=== PATIENT | male | born 1980 | race African-American/Black ===

== ENCOUNTER 2016-10-07 11:23 | Emergency (ER) | payer OTHER ==
[~2016-10-07] VITALS: Ht 188 cm; Wt 106.6 kg
[2016-10-07 11:24] VITALS: BP 141/91
[2016-10-07] MEDS ORDERED: THERPAK PO (11:36)
[2016-10-07] MEDS ORDERED: NAPR250T2 PO (11:36)
[2016-10-07] MEDS ORDERED: OFLO0.3D57 (11:36)
[2016-10-07] MEDS ORDERED: TOBR3OPD OU (11:36)
[2016-10-07] MEDS ORDERED: AMOXICILLIN 500 MG CAP PO ONE (12:00)
[2016-10-07] MEDS ORDERED: ERYTHROMYCIN OPHTH OINT OU ONE (12:00)
[2016-10-07] MEDS ORDERED: ERYTOIN8 OU (12:02)
[2016-10-07] MEDS ORDERED: AMOX500C PO (12:02)
== END 2016-10-07 12:16 | disposition home or self-care (01) ==
LOC: M ED 11:50
DX: J02.9 Acute pharyngitis, unspecified (principal); H66.91 Otitis media, unspecified, right ear; H10.30 Unspecified acute conjunctivitis, unspecified eye

== ENCOUNTER 2022-01-10 20:29 | Inpatient (IN) | payer OTHER ==
[~2022-01-10] VITALS: Ht 188 cm; Wt 128.3 kg
[~2022-01-10 20:29] MED LIST: AK-T0.3S OU; AMOX500C PO; ERYTOIN8 OU; NAPR-849 PO; OFLO0.3D57; THERPAK PO
[2022-01-10] MEDS ORDERED: MORPHINE 2 MG/ML 1ML VIAL IV ONE (21:10)
[2022-01-10] MEDS ORDERED: ONDANSETRON 4MG 2ML VIAL IV ONE (21:10)
[2022-01-10 21:20] LABS: HEMATOCRIT 43.6 % (42.0-52.0); HEMOGLOBIN 15.3 g/dl (13.5-17.5); MEAN CORPUSCULAR HEMOGLOBIN 30.5 pg (27.0-33.0); MEAN CORPUSCULAR HGB CONC 35.1 g/dl (32.0-36.5); MEAN CORPUSCULAR VOLUME 86.9 fl (80.0-96.0); PLATELET COUNT, AUTOMATED 249 10^3/uL (150-450); RED BLOOD COUNT 5.02 10^6/uL (4.30-6.10)
[2022-01-10] MEDS ORDERED: ASPIRIN 81 MG CHEW TABLET PO ONE (21:20)
[2022-01-10 21:21] LABS: WHITE BLOOD COUNT 8.8 10^3/uL (4.0-10.0)
[2022-01-10] MEDS ORDERED: ISOVUE-370 76% 100ML VIAL As Ordered ONE (21:24)
[2022-01-10 21:29] LABS: INR 1.01; PROTHROMBIN TIME 13.7 SECONDS (12.7-14.5)
[2022-01-10 21:30] LABS: PARTIAL THROMBOPLASTIN TIME 30.9 SECONDS (25.9-37.0)
[2022-01-10 21:32] LABS: D-DIMER QUANT 383.13 ng/ml (<500)
[2022-01-10 21:38] LABS: ATYPICAL LYMPH 5 % (0-5); LYMPHOCYTES 42 % (16-44); MONOCYTES 6 % (0-5); NEUTROPHILS 47 % (28-66)
[2022-01-10 21:40] LABS: PLATELET ESTIMATE NORMAL (NORMAL)
[2022-01-10 21:45] LABS: CK-MB VALUE MASS 21.3 NG/ML (<3.6); MB/CK RELATIVE INDEX 3.14 (< OR =4)
[2022-01-10] MEDS ORDERED: NS 1,000 ML IV ONE (21:50)
[2022-01-10 21:59] LABS: ALBUMIN 3.8 GM/DL (3.2-5.2); BILIRUBIN,DIRECT 0.1 MG/DL (0.0-0.2); BILIRUBIN,TOTAL 0.5 MG/DL (0.2-1.0); C REACTIVE PROTEIN QUANTITATIV 1.47 MG/DL (0.00-0.30); FREE T4 1.12 NG/DL (0.76-1.46); THYROID STIMULATING HORMONE 1.03 uIU/ML (0.358-3.740); TOTAL PROTEIN 8.1 GM/DL (6.4-8.2)
[2022-01-10 22:08] LABS: RSV AMPLIFICATION NEGATIVE (NEGATIVE)
[2022-01-10 22:14] LABS: ERYTHROCYTE SEDIMENTATION RATE 49 mm/hr (0-15)
[2022-01-10 23:06] LABS: AMPHETAMINES LEVEL URINE NEGATIVE (NEGATIVE); BARBITURATES URINE NEGATIVE (NEGATIVE); BENZODIAZEPINES URINE NEGATIVE (NEGATIVE); CANNABINOIDS URINE POSITIVE (NEGATIVE); COCAINE METABOLITE URINE NEGATIVE (NEGATIVE); METHADONE URINE NEGATIVE (NEGATIVE); OPIATES URINE POSITIVE (NEGATIVE); PHENCYCLIDINE URINE NEGATIVE (NEGATIVE)
[2022-01-10 23:25] LABS: CK-MB VALUE MASS 19.2 NG/ML (<3.6); MB/CK RELATIVE INDEX 3.14 (< OR =4)
[2022-01-11] MEDS ORDERED: HOME MED LIST COMPLETE! XX SCH (01:35)
[2022-01-11] MEDS ORDERED: HYDROMORPHONE HCL 0.5 MG/ 0.5 ML SYRINGE (J1170 PER 1) IV PRN (02:40)
[2022-01-11] MEDS ORDERED: ACETAMINOPHEN TAB 650MG DOSE (2X325MG) PO PRN (02:40)
[2022-01-11] MEDS: ASPIRIN 81 MG CHEW TABLET PO SCH (09:09)
[2022-01-11] MEDS: ENOXAPARIN 40MG/0.4ML SYRINGE (J1650 PER 10MG) SC SCH (09:10)
[2022-01-11 12:00] VITALS: BP 116/74
[2022-01-11 14:00] VITALS: BP 149/94
[2022-01-11 19:40] VITALS: BP 128/86
[2022-01-11] MEDS ORDERED: IBUPROFEN 600MG TAB PO PRN (19:55)
[2022-01-12 06:22] VITALS: BP 118/62
[2022-01-12] MEDS: ENOXAPARIN 40MG/0.4ML SYRINGE (J1650 PER 10MG) SC SCH (08:12)
[2022-01-12] MEDS: ASPIRIN 81 MG CHEW TABLET PO SCH (08:12)
[2022-01-12 08:13] LABS: HEMATOCRIT 41.3 % (42.0-52.0); HEMOGLOBIN 14.5 g/dl (13.5-17.5); MEAN CORPUSCULAR HEMOGLOBIN 31.3 pg (27.0-33.0); MEAN CORPUSCULAR HGB CONC 35.1 g/dl (32.0-36.5); PLATELET COUNT, AUTOMATED 211 10^3/uL (150-450); RED BLOOD COUNT 4.64 10^6/uL (4.30-6.10)
[2022-01-12 08:22] LABS: INR 1.03; PROTHROMBIN TIME 13.9 SECONDS (12.7-14.5)
[2022-01-12 08:26] LABS: D-DIMER QUANT 387.41 ng/ml (<500)
[2022-01-12] MEDS ORDERED: IBUP-1022 PO (08:58)
[2022-01-12] MEDS ORDERED: ASPI81CH8 PO (08:58)
[2022-01-12 09:05] LABS: ATYPICAL LYMPH 1 % (0-5); EOSINOPHILS 2 % (0-3); LYMPHOCYTES 34 % (16-44); MONOCYTES 7 % (0-5); NEUTROPHILS 54 % (28-66)
[2022-01-12 09:08] LABS: PLATELET ESTIMATE NORMAL (NORMAL)
[2022-01-12 09:26] LABS: ALBUMIN 3.2 GM/DL (3.2-5.2); ALT/SGPT 46 U/L (12-78); BILIRUBIN,DIRECT 0.2 MG/DL (0.0-0.2); BILIRUBIN,TOTAL 0.6 MG/DL (0.2-1.0); BLOOD UREA NITROGEN 7 MG/DL (7-18); CALCIUM LEVEL 8.8 MG/DL (8.5-10.1); CARBON DIOXIDE LEVEL 26 MEQ/L (21-32); CHLORIDE LEVEL 105 MEQ/L (98-107); CREATININE FOR GFR 0.93 MG/DL (0.70-1.30); GLOMERULAR FILTRATION RATE > 60.0 (>60); GLUCOSE, FASTING 94 MG/DL (70-100); LDH LACTATE DEHYDROGENASE 215 U/L (87-241); MYOGLOBIN 62 NG/ML (16-116); POTASSIUM SERUM 3.5 MEQ/L (3.5-5.1); SODIUM LEVEL 138 MEQ/L (136-145); TOTAL PROTEIN 8.1 GM/DL (6.4-8.2)
[2022-01-12 09:27] LABS: C REACTIVE PROTEIN QUANTITATIV 5.64 MG/DL (0.00-0.30); FERRITIN 272 NG/ML (26-388)
[2022-01-12 10:10] LABS: CHOLESTEROL LEVEL 219 MG/DL (<200); CHOLESTEROL RISK RATIO 9.125 (<5); HDL CHOLESTEROL 24 MG/DL (>40); LDL CHOLESTEROL 159 MG/DL (<100); NON-HDL-C 195 MG/DL; TRIGLYCERIDES LEVEL 178 MG/DL (<150)
[2022-01-12 10:46] LABS: HEMOGLOBIN A1c 5.8 %
== END 2022-01-12 10:29 | disposition home or self-care (01) | DRG 207 ==
LOC: M ED 20:29 → M ED INP 01-11 02:39 → ENRESERV 01-11 11:29 → M MSPAV 01-11 12:00
PROVIDERS: ADMIT Internal Medicine; ATTEND General Practice
DX: I51.4 Myocarditis, unspecified (principal); U09.9 Post COVID-19 condition, unspecified; E66.9 Obesity, unspecified; Z68.36 Body mass index [BMI] 36.0-36.9, adult